=== PATIENT | female | born 1995 | race African-American/Black ===

== ENCOUNTER 2024-06-20 16:37 | Inpatient (IN) | payer OTHER ==
[2024-06-20 17:39] VITALS: BMI 37.0
[2024-06-20] MEDS: ELECTROLYTE-148 SOLN 1,000 ML IV SCH (19:00)
[2024-06-20 19:19] LABS: INR 0.99 (0.83-1.09); PROTHROMBIN TIME (PATIENT) 10.8 SEC (9.7-13.0)
[2024-06-20 19:21] LABS: ACTIVATED PTT 24.8 SECONDS (25.2-36.5)
[2024-06-20 19:26] LABS: BASO % 0.5 % (0-2.0); EOS % 0.7 % (0-4.5); HEMOGLOBIN 12.6 GM/dL (10.7-15.3); LYMPH % 22.3 % (8-40); MCH 25.7 pg (25.7-33.7); MCHC 33.2 g/dl (32.0-36.0); MEAN CELL VOLUME 77.4 fl (80-96); MEAN PLT VOLUME 9.4 fl (7.5-11.1); MONO % 7.7 % (3.8-10.2); NEUT % 68.8 % (42.8-82.8); PLATELET COUNT 263 10^3/uL (134-434); RBC 4.91 M/mm3 (3.60-5.2); RDW 14.9 % (11.6-15.6); WHITE BLOOD COUNT 7.3 K/mm3 (4.0-10.0)
[2024-06-20 19:34] LABS: POTASSIUM 4.1 mmol/L (3.5-5.1)
[2024-06-20 19:35] LABS: CALCIUM 8.9 mg/dL (8.5-10.1)
[2024-06-20 19:36] LABS: BLOOD UREA NITROGEN 7.7 mg/dL (7-18)
[2024-06-20 19:39] LABS: CREATININE 0.7 mg/dL (0.55-1.3)
[2024-06-20] MEDS: DINOPROSTONE 10 MG VAGINAL SUPPOSITORY VG ONE (19:45)
[2024-06-20 20:01] LABS: SYPHILIS W/ RPR CONF NON-REACTIVE (NONREACTIVE)
[2024-06-20 20:30] LABS: HIV INTERPRETATION NEGATIVE (NEGATIVE)
[2024-06-21] MEDS ORDERED: BUTORPHANOL TARTRATE 2 MG/ML VIAL ONE (00:51)
[2024-06-21] MEDS ORDERED: PROMETHAZINE HCL 25 MG/1 ML VIAL ONE (00:52)
[2024-06-21] MEDS: PROMETHAZINE HCL 25 MG/1 ML VIAL IVPB ONE (00:55)
[2024-06-21] MEDS: BUTORPHANOL TARTRATE 2 MG/ML VIAL IVPB ONE (00:55)
[2024-06-21] MEDS ORDERED: FENTANYL/BUPIVACAINE/NS/PF - PCEA - 50 ML DISP.SYRIN EP ONE ×2 (03:58→09:21)
[2024-06-21] MEDS ORDERED: BUPIVACAINE HCL/PF 0.25% (2.5MG/ML) 10 ML VIAL ONE (04:07)
[2024-06-21] MEDS ORDERED: FENTANYL CITRATE/PF 50 MCG/ML VIAL ONE (04:07)
[2024-06-21] MEDS: FENTANYL/BUPIVACAINE/NS/PF - PCEA - 50 ML DISP.SYRIN EP SCH (04:25)
[2024-06-21] MEDS ORDERED: NALOXONE HCL 0.4 MG/ML VIAL IVPUSH PRN (04:32)
[2024-06-21] MEDS ORDERED: OXYTOCIN 30 UNITS in 0.9% NS 30 UNIT/500 ML INFUS.BAG IVPB ONE ×2 (06:12→09:42)
[2024-06-21] MEDS: OXYTOCIN 30 UNITS in 0.9% NS 30 UNIT/500 ML INFUS.BAG IVPB SCH (06:15)
[2024-06-21] MEDS ORDERED: OXYTOCIN 20 UNITS in 0.9% NS 20 UNIT/1,000 ML INFUS.BAG IV ONE (09:43)
[2024-06-21] MEDS ORDERED: METHYLERGONOVINE MALEATE 0.2 MG/1 ML AMP IM PRN (09:51)
[2024-06-21] MEDS ORDERED: WITCH HAZEL 50% (TUCKS) 40 PAD/JAR PAD TP PRN (09:51)
[2024-06-21] MEDS ORDERED: BISACODYL 10 MG SUPP.RECT RC PRN (09:51)
[2024-06-21] MEDS ORDERED: ACETAMINOPHEN 325 MG TABLET (FP) PO PRN (09:51)
[2024-06-21] MEDS ORDERED: oxyCODONE HCL 5 MG TABLET PO PRN (09:51)
[2024-06-21] MEDS ORDERED: BENZOCAINE 28 GM HEMORRHOIDAL OINTMENT TP PRN (09:51)
[2024-06-21] MEDS: OXYTOCIN 20 UNITS in 0.9% NS 20 UNIT/1,000 ML INFUS.BAG IV SCH (10:18)
[2024-06-21] MEDS: DEXTROSE 5%-LACTATED RINGERS 1,000 ML IV SCH (11:27)
[2024-06-21] MEDS ORDERED: PRENATAL VITAMINS W/ FOLIC ACID TABLET (FP) PO ONE (11:47)
[2024-06-21] MEDS: PRENATAL VITAMINS W/ FOLIC ACID TABLET (FP) PO SCH (11:52)
[2024-06-21 13:06] LABS: POC NITRAZINE POS
[2024-06-21] MEDS: BENZOCAINE 20% 57 GM BOTTLE TP PRN (16:16)
[2024-06-21] MEDS: IBUPROFEN 600 MG TABLET (FP) PO PRN (18:25)
[2024-06-22 08:05] LABS: ABSOLUTE IMMATURE GRANULOCYTES 0.07 x10^3/uL (0.0-0.031); BASOPHILS # 0.06 x10^3/uL (0.01-0.08); EOSINOPHIL % 0.4 % (0.7-5.8); EOSINOPHILS # 0.05 x10^3/uL (0.04-0.36); HEMATOCRIT 30.5 % (34.1-44.9); HEMOGLOBIN 9.5 g/dL (11.2-15.7); MCHC 31.1 g/dl (32.2-35.5); MEAN CELL VOLUME 79.2 fl (79.4-94.8); MEAN PLT VOLUME 11.3 fl (9.4-12.3); MONOCYTE # 1.13 x10^3/uL (0.24-0.86); PLATELET COUNT # 183 x10^3/uL (182-369); RDW 14.2 % (12.1-16.5)
[2024-06-22] MEDS: FERROUS SO4 325 MG TABLET (FP) PO SCH (12:17)
[2024-06-22 21:52] VITALS: RESP 18
[2024-06-22] MEDS ORDERED: SENNOSIDES/DOCUSATE COMBO (SENNA PLUS) TABLET (UD) PO PRN (22:00)
[2024-06-23 12:08] VITALS: BP 109/75; PULSE 100; TEMP 98
== END 2024-06-23 13:35 | disposition home or self-care (01) | DRG 807 ==
LOC: JLDR 16:37 → J3W 06-21 12:37
PROVIDERS: ADMIT Obstetrics & Gynecology; ATTEND Obstetrics & Gynecology
PROC: 10E0XZZ Delivery of Products of Conception, External Approach (ICD-10-PCS; principal; 2024-06-21)
PROC: 0HQ9XZZ Repair Perineum Skin, External Approach (ICD-10-PCS; 2024-06-21)
PROC: 0W8NXZZ Division of Female Perineum, External Approach (ICD-10-PCS; 2024-06-21)
PROC: 3E0P7VZ Introduction of Hormone into Female Reproductive, Via Natural or Artificial Opening (ICD-10-PCS; 2024-06-21)
DX: O70.0 First degree perineal laceration during delivery (principal); Z3A.39 39 weeks gestation of pregnancy; Z37.0 Single live birth
CPT/HCPCS: 36415; 59409; 80048; 83986-QW; 85025; 85610; 85730; 86780; 86850; 86900; 86901; 87389